=== PATIENT | female | born 1995 | race Caucasian/White ===

== ENCOUNTER 2020-11-21 20:57 | Inpatient (IN) ==
[2020-11-21 22:36] LABS: Bilirubin,Urine Negative (Negative); Blood,Urine Negative (Negative); Clarity,Urine Clear (Clear); Color,Urine Colorless (Yellow); Glucose,Urine (UA) Normal (Normal); Ketones,Urine Negative (Negative); Leukocyte Esterase,Urine Negative (Negative); Nitrite,Urine Negative (Negative); PH,Urine 6.5 pH Units (5.0-8.0); Protein,Urine Negative (Neg-Trace); Specific Gravity,Urine 1.005 (1.010-1.025); Urobilinogen,Urine Normal (Normal)
[2020-11-21 22:39] LABS: Amphetamine Screen,Urine Negative ng/mL (Cutoff=1000); Barbiturate Screen,Urine Negative ng/mL (Cutoff=200); Benzodiazepines Screen,Urine Negative ng/mL (Cutoff=200); Cannabinoid Screen,Urine Negative ng/mL (Cutoff = 50); Cocaine Screen,Urine Negative ng/mL (Cutoff= 300); Opiate Screen,Urine Negative ng/mL (Cutoff=300); Phencyclidine Screen,Urine Negative ng/mL (Cutoff=25)
[2020-11-21 23:32] LABS: Acetaminophen < 10 mcg/mL (10-20); BUN/Creatinine Ratio 11 (6-26); Blood Urea Nitrogen 8 mg/dL (6-20); Calcium 9.1 mg/dL (8.6-10.3); Carbon Dioxide 23 mEq/L (23-29); Chloride 108 mEq/L (98-107); Ethanol < 10 mg/dL (Less than 10); Glucose 94 mg/dL (70-105); Osmolality,Calculated 286 (280-300); Potassium 3.5 mEq/L (3.5-5.1); Salicylate < 2.5 mg/dL (15.0-30.0); Sodium 139 mEq/L (136-145); eGFR For African Americans > 60 (> 60); eGFR For Non-African Americans > 60 (> 60)
[2020-11-21 23:34] LABS: Basophils # 0.1 K/mcL (0.0-0.2); Basophils % 0.5 %; Eosinophils # 0.2 K/mcL (0.0-0.6); Eosinophils % 1.9 %; Hematocrit 41.6 % (35.3-44.9); Hemoglobin 13.5 g/dL (11.5-15.4); Immature Granulocytes % 0.3 % (0-4); Lymphocytes # 3.9 K/mcL (0.6-4.6); Lymphocytes % 32.5 %; Mean Corpuscular HGB Conc 32.5 g/dL (31.6-35.5); Mean Corpuscular Hemoglobin 27.2 pg (28.0-33.3); Mean Corpuscular Volume 83.7 fL (83.0-100.0); Mean Platelet Volume 10.5 fL (9.4-12.4); Monocytes # 0.6 K/mcL (0.0-1.3); Monocytes % 5.2 %; Neutrophils # 7.2 K/mcL (1.6-8.9); Platelet Count 227 K/mcL (140-400); Red Blood Count 4.97 M/mcL (3.82-4.97); Red Cell Distribution Width 12.5 % (11.5-14.5); Segmented Neutrophils % 59.6 %
[2020-11-22 02:31] LABS: Magnesium 1.8 mg/dL (1.6-2.6)
[2020-11-22 05:12] LABS: Adenovirus Not Detected (Not Detect); Bordetella Pertussis Not Detected (Not Detect); Chlamydophila pneumoniae Not Detected (Not Detect); Coronavirus 229E Not Detected (Not Detect); Coronavirus HKU1 Not Detected (Not Detect); Coronavirus NL63 Not Detected (Not Detect); Coronavirus OC43 Not Detected (Not Detect); Human Metapneumovirus Not Detected (Not Detect); Human Rhinovirus/Enterovirus Not Detected (Not Detect); Influenza A Subtype 2009 H1 Not Detected (Not Detect); Influenza B Not Detected (Not Detect); Mycoplasma pneumoniae Not Detected (Not Detect); Parainfluenza Virus 1 Not Detected (Not Detect); Parainfluenza Virus 2 Not Detected (Not Detect); Parainfluenza Virus 3 Not Detected (Not Detect); Parainfluenza Virus 4 Not Detected (Not Detect); Respiratory Syncytial Virus Not Detected (Not Detect); SARS-CoV-2 Not Detected (Not Detect)
[2020-11-22] MEDS ORDERED: traZODone 50 MG TABLET PO PRN (05:19)
[2020-11-22] MEDS ORDERED: Haloperidol Lactate 5 MG/ML VIAL IM PRN (05:19)
[2020-11-22] MEDS ORDERED: *HR* LORazepam 2 MG/ML VIAL IM PRN (05:19)
[2020-11-22] MEDS ORDERED: hydrOXYzine pamoate 25 MG CAPSULE PO PRN (05:19)
[2020-11-22] MEDS ORDERED: haloperidoL 5 MG TABLET PO PRN (05:19)
[2020-11-22] MEDS ORDERED: *HR* LORazepam 1 MG TABLET PO PRN (05:19)
[2020-11-22] MEDS: Nicotine 7 MG PATCH.TD24 TD SCH (10:26)
[2020-11-22] MEDS: Mag Hydrox/Al Hydrox/Simeth 30 ML UDC PO PRN (20:58)
[2020-11-22] MEDS: Acetaminophen 325 MG TABLET PO PRN (20:58)
[2020-11-23] MEDS: Nicotine 7 MG PATCH.TD24 TD SCH (08:49)
[2020-11-23] MEDS: Mag Hydrox/Al Hydrox/Simeth 30 ML UDC PO PRN (21:28)
[2020-11-23] MEDS: traZODone 50 MG TABLET PO PRN (21:28)
[2020-11-23] MEDS: Acetaminophen 325 MG TABLET PO PRN (21:29)
[2020-11-24] MEDS: Nicotine 7 MG PATCH.TD24 TD SCH (08:46)
[2020-11-24] MEDS: Acetaminophen 325 MG TABLET PO PRN ×2 (12:06→20:43)
[2020-11-24] MEDS ORDERED: Melatonin 3 MG TABLET PO PRN (13:03)
[2020-11-24] MEDS: MOM Conc 10 ML UD.LIQ PO PRN (18:54)
[2020-11-24] MEDS: traZODone 50 MG TABLET PO PRN (22:08)
[2020-11-25] MEDS: Nicotine 7 MG PATCH.TD24 TD SCH (08:49)
[2020-11-25] MEDS ORDERED: Melatonin 3 MG TABLET PO PRN (10:01)
[2020-11-25] MEDS: MOM Conc 10 ML UD.LIQ PO PRN (14:25)
[2020-11-26] MEDS: Nicotine 7 MG PATCH.TD24 TD SCH (08:16)
[2020-11-26 09:57] VITALS: BP 105/63; PULSE 96; TEMP 97.5; O2SAT 98
== END 2020-11-26 11:25 | disposition home or self-care (01) | DRG 817 ==
LOC: EMEROOARM 20:57 → 1ANU 11-22 05:17
PROVIDERS: ADMIT Psychiatry & Neurology Psychiatry; ATTEND Psychiatry & Neurology Psychiatry